=== PATIENT | male | born 1965 | race Caucasian/White ===

== ENCOUNTER 2019-01-26 09:57 | Day surgery (SDC) | payer OTHER ==
[~2019-01-26 09:57] MED LIST: LIDOCAINE 2% (SDV) 5 ML INJ
[2019-01-26] MEDS ORDERED: ONDANSETRON 4 MG INJ IV (11:30)
[2019-01-26] MEDS ORDERED: LABETALOL HCL 20MG INJ IV (11:30)
[2019-01-26] MEDS ORDERED: FENTAnyl 50 MCG/ML VIAL IV (11:30)
[2019-01-26] MEDS ORDERED: EPHEDrine SULFATE 50 MG/5 ML SYG IV (11:30)
[2019-01-26] MEDS ORDERED: hydrALAzine 20 MG INJ IV (11:30)
[2019-01-26] MEDS ORDERED: PROPOFOL 60 ML (11:34)
== END 2019-01-26 14:11 | disposition home or self-care (01) ==
LOC: GIL 09:57
DX: Z12.11 Encounter for screening for malignant neoplasm of colon (principal); K64.8 Other hemorrhoids; K21.9 Gastro-esophageal reflux disease without esophagitis; K29.60 Other gastritis without bleeding
CPT/HCPCS: 43239; 88305; 88312